=== PATIENT | female | born 1970 | race American Indian/Alaskan Native ===

== ENCOUNTER 2017-03-18 17:34 | Outpatient (CLI) | payer OTHER ==
--- NOTE | 2017-03-19 14:15 | XRay Report ---
Chest 2 views: History: Previous positive PPD. Findings: Normal cardiomediastinal silhouette. Trachea is midline. No consolidation, pneumothorax or pleural effusion. Impression: No acute cardiopulmonary findings.
== END 2017-03-18 17:35 | disposition home or self-care (01) ==
LOC: XRAY 17:34
DX: R76.11 Nonspecific reaction to tuberculin skin test without active tuberculosis (principal)
CPT/HCPCS: 71020

== ENCOUNTER 2017-12-26 15:30 | Emergency (ER) | payer BC, OTHER ==
[2017-12-26 15:43] VITALS: BP 147/84
[2017-12-26] MEDS ORDERED: ASPIRIN PO ONE (15:45)
[2017-12-26 16:27] LABS: Hematocrit 38.8 % (30.3-42.9); Hemoglobin 12.4 gm/dl (10.1-14.3); Mean Corpuscular HGB Conc 32 % (30-34); Mean Corpuscular Hemoglobin 27 pg (28-32); Mean Corpuscular Volume 84 fl (79-97); Platelet Count 181 K/mm3 (140-440); Red Blood Count 4.61 M/mm3 (3.65-5.03); Red Cell Distribution Width 13.5 % (13.2-15.2)
[2017-12-26 16:39] LABS: Basophils # (Auto) 0.1 K/mm3 (0.0-0.1); Eosinophils # (Auto) 0.1 K/mm3 (0.0-0.4); Eosinophils % (Auto) 1.5 % (0.0-4.3); Lymphocytes # (Auto) 2.6 K/mm3 (1.2-5.4); Lymphocytes % (Auto) 50.1 % (13.4-35.0); Monocytes # (Auto) 0.3 K/mm3 (0.0-0.8); Monocytes % (Auto) 5.5 % (0.0-7.3)
[2017-12-26 16:47] LABS: BUN/Creatinine Ratio 9; Blood Urea Nitrogen 9 mg/dL (7-17); Calcium 9.2 mg/dL (8.4-10.2); Hemolysis Index 11
[2017-12-26] MEDS ORDERED: ULTRAM PO ONE (17:17)
--- NOTE | 2017-12-26 19:04 | Emergency Department Report ---
ED Chest Pain HPI - General Chief Complaint: Chest Pain Stated Complaint: CHEST PAIN Time Seen by Provider: 12/26/17 17:10 Source: patient Mode of arrival: Ambulatory Limitations: No Limitations - History of Present Illness Initial Comments: Patient is a 47-year-old female who has had approximately 4 weeks off and on chest pain. Patient states is usually in the left upper quadrant will last for sometimes up to the day and then dissipate and may come back a week later. Patient is having bowel movements she denies any cough congestion and fevers chills nausea vomiting. Patient states that the pain sometimes radiates into the left chest. Severity scale (0 -10): 4 - Related Data Previous Rx's Medication Instructions Recorded Last Taken Type Dicyclomine [Bentyl] 20 mg PO QID #20 tablet 12/26/17 Unknown Rx Docusate Sodium [Colace] 100 mg PO BID #20 capsule 12/26/17 Unknown Rx Simethicone [Gas Relief] 125 mg PO BID #20 capsule 12/26/17 Unknown Rx Allergies Allergy/AdvReac Type Severity Reaction Status Date / Time avocado Allergy Anaphylaxis Verified 12/26/17 15:43 codeine Allergy Rash Verified 12/26/17 15:44 latex Allergy Shortness Verified 12/26/17 15:43 of Breath meperidine [From Demerol] Allergy Shortness Verified 12/26/17 15:44 of Breath sumatriptan [From Imitrex] AdvReac Vomiting Verified 12/26/17 15:44 Heart Score - HEART Score History: Slightly suspicious EKG: Normal Age: 45-65 Risk factors: No known risk factors Troponin: < normal limit HEART Score: 1 ED Review of Systems ROS: Stated complaint: CHEST PAIN Other details as noted in HPI Comment: All other systems reviewed and negative ED Past Medical Hx - Past Medical History Previous Medical History?: Yes Hx Hypertension: Yes Hx Asthma: Yes Additional medical history: MV prolapse - Surgical History Additional Surgical History: Hysterectomy, Rotator cuff surgery. - Social History Smoking Status: Never Smoker Substance Use Type: None - Medications Home Medications: Home Medications Medication Instructions Recorded Confirmed Last Taken Type Dicyclomine [Bentyl] 20 mg PO QID #20 tablet 12/26/17 Unknown Rx Docusate Sodium [Colace] 100 mg PO BID #20 capsule 12/26/17 Unknown Rx Simethicone [Gas Relief] 125 mg PO BID #20 capsule 12/26/17 Unknown Rx ED Physical Exam - General Limitations: No Limitations General appearance: alert, in no apparent distress - Head Head exam: Present: atraumatic, normocephalic - Eye Eye exam: Present: normal appearance - ENT ENT exam: Present: mucous membranes moist - Neck Neck exam: Present: normal inspection - Respiratory Respiratory exam: Present: normal lung sounds bilaterally. Absent: respiratory distress, wheezes, rales, rhonchi - Cardiovascular Cardiovascular Exam: Present: regular rate, normal rhythm. Absent: systolic murmur, diastolic murmur, rubs, gallop - GI/Abdominal GI/Abdominal exam: Present: soft, normal bowel sounds. Absent: distended, tenderness, guarding, rebound, rigid - Extremities Exam Extremities exam: Present: normal inspection - Back Exam Back exam: Present: normal inspection - Neurological Exam Neurological exam: Present: alert, oriented X3 - Psychiatric Psychiatric exam: Present: normal affect, normal mood - Skin Skin exam: Present: warm, dry, intact, normal color. Absent: rash ED Course Vital Signs 12/26/17 12/26/17 15:39 17:27 Temperature 98.5 F Pulse Rate 68 Respiratory 18 16 Rate Blood Pressure 147/84 O2 Sat by Pulse 99 Oximetry ED Medical Decision Making - Lab Data Result diagrams: 12/26/17 15:57 12/26/17 15:57 Lab Results 12/26/17 12/26/17 12/26/17 Range/Units 15:57 15:57 18:18 WBC 5.0 (4.5-11.0) K/mm3 RBC 4.61 (3.65-5.03) M/mm3 Hgb 12.4 (10.1-14.3) gm/dl Hct 38.8 (30.3-42.9) % MCV 84 (79-97) fl MCH 27 L (28-32) pg MCHC 32 (30-34) % RDW 13.5 (13.2-15.2) % Plt Count 181 (140-440) K/mm3 Lymph % (Auto) 50.1 H (13.4-35.0) % Bledsoe % (Auto) 5.5 (0.0-7.3) % Eos % (Auto) 1.5 (0.0-4.3) % Baso % (Auto) 1.0 (0.0-1.8) % Lymph # 2.6 (1.2-5.4) K/mm3 Bledsoe # 0.3 (0.0-0.8) K/mm3 Eos # 0.1 (0.0-0.4) K/mm3 Baso # 0.1 (0.0-0.1) K/mm3 Seg Neutrophils % 41.9 (40.0-70.0) % Seg Neutrophils # 2.2 (1.8-7.7) K/mm3 D-Dimer 188.26 (0-234) ng/mlDDU Sodium 141 (137-145) mmol/L Potassium 4.4 (3.6-5.0) mmol/L Chloride 102.2 (98-107) mmol/L Carbon Dioxide 29 (22-30) mmol/L Anion Gap 14 mmol/L BUN 9 (7-17) mg/dL Creatinine 1.0 (0.7-1.2) mg/dL Estimated GFR > 60 ml/min BUN/Creatinine Ratio 9 % Glucose 96 (65-100) mg/dL Calcium 9.2 (8.4-10.2) mg/dL Troponin T < 0.010 (0.00-0.029) ng/mL - EKG Data -: EKG Interpreted by Me EKG shows normal: sinus rhythm, axis, intervals, QRS complexes, ST-T waves Rate: normal - EKG Data Interpretation: normal EKG - Radiology Data [facility] had an outside x-ray performed. Was able to look at the x-ray of the chest and does show a large pocket of colonic gas in the left upper quadrant. Distally there is retained stool Critical care attestation.: If time is entered above; I have spent that time in minutes in the direct care of this critically ill patient, excluding procedure time. ED Disposition Clinical Impression: Atypical chest pain, Gas pain Disposition: DC-01 TO HOME OR SELFCARE Is pt being admited?: No Does the pt Need Aspirin: No Condition: Stable Instructions: Chest Pain (ED) Prescriptions: Dicyclomine [Bentyl] 20 mg PO QID #20 tablet Docusate Sodium [Colace] 100 mg PO BID #20 capsule Simethicone [Gas Relief] 125 mg PO BID #20 capsule Referrals: FCO RUELAS MD [Staff Physician] - 3-5 Days ZOË DOBSON MD [Staff Physician] - 3-5 Days Forms: Work/School Release Form(ED)
== END 2017-12-26 19:14 | disposition home or self-care (01) ==
LOC: ED 15:30
DX: R07.89 Other chest pain (principal); R14.1 Gas pain; I10 Essential (primary) hypertension; J45.909 Unspecified asthma, uncomplicated; Z90.710 Acquired absence of both cervix and uterus; Z91.018 Allergy to other foods; Z88.5 Allergy status to narcotic agent; Z91.040 Latex allergy status
CPT/HCPCS: 36415; 80048; 84484; 85025; 85379; 93005; 93010; 99284

== ENCOUNTER 2018-02-03 08:42 | Outpatient (CLI) | payer BC ==
--- NOTE | 2018-02-03 17:22 | Ultrasound Report ---
FINAL REPORT EXAM: US ABDOMEN LIMITED HISTORY: LUQ ABDOMINAL PAIN/LLQ ABDOMINAL TENDERNESS TECHNIQUE: Directed sonography of the left upper quadrant. PRIORS: None. FINDINGS: Visualized splenic parenchyma grossly unremarkable. Left kidney measures 10.1 cm in longest dimension and is grossly unremarkable. No other focal abnormalities. IMPRESSION: 1. No acute findings.
== END 2018-02-03 08:43 | disposition home or self-care (01) ==
LOC: US 08:42
PROVIDERS: ATTEND Student in an Organized Health Care Education/Training Program
DX: R10.814 Left lower quadrant abdominal tenderness (principal); I10 Essential (primary) hypertension; J45.909 Unspecified asthma, uncomplicated; Z90.710 Acquired absence of both cervix and uterus
CPT/HCPCS: 76705